=== PATIENT | male | born 1975 | race Hispanic/Latino ===

== ENCOUNTER 2020-06-05 14:04 | Outpatient (CLI) | payer BC, SELFPAY ==
--- NOTE | ~2020-06-05 | US_ITS ---
EXAMINATION: US art doppler w domitila SALAMANCA EXAM DATE: 06/05/2020 14:46 INDICATION: Left leg pain. TECHNIQUE: Segmental pressures and plethysmographic and Doppler waveforms of the brachial and lower e xtremity arteries were obtained. There is no prior study for comparison. FINDINGS: Right and left brachial artery pressures of 100 mm Hg and 108 mm Hg, respectively, are concordant (no rmal difference <= 30 mmHg). The right and left thigh-brachial pressure indices are 1.16, 1.48, resp ectively (normal > 1.2). RIGHT LEG: The ankle-brachial index (JUDIT) is 1.19 (normal >= 0.9-1). The great toe-brachial index (TBI) is 0.94 (normal >= 0.65). The lower extremity ratios, segmental pressure gradients as follows; Proximal superficial femoral artery:- 1.16 (125 mmHg). Distal superficial femoral artery: ----- 1.14 (123 mmHg). Popliteal: 1.22 (132 mmHg). Posterior tibial: 1.19 (126 mmHg). Dorsalis pedis: 1.06 (115 mmHg). (Normal gradients <= 20-30 mmHg between adjacent levels on the same leg or the same levels on the two legs). Arterial waveforms are biphasic. LEFT LEG: The ankle-brachial index (JUDIT) is 1.34 (normal >= 0.9-1). The great toe-brachial index (TBI) is 1.32 (normal >= 0.65). The lower extremity ratios, segmental pressure gradients as follows; Proximal superficial femoral artery:- 1.48 (160 mmHg). Distal superficial femoral artery: ----- 1.41 (152 mmHg). Popliteal: 1.32 (143 mmHg). Posterior tibial: 1.34 (145 mmHg). Dorsalis pedis: 1.18 (127 mmHg). (Normal gradients <= 20-30 mmHg between adjacent levels on the same leg or the same levels on the two legs). Arterial waveforms are biphasic. IMPRESSION: 1. Right ankle-brachial index 1.19, normal. 2. Left ankle-brachial index 1.34, normal. 3. Segmental pressures as above. Reviewed, dictated and finalized at location B.
== END 2020-06-05 14:05 | disposition home or self-care (01) ==
PROVIDERS: Visit Provider Internal Medicine Cardiovascular Disease
DX: I25.10 Atherosclerotic heart disease of native coronary artery without angina pectoris (principal); M79.605 Pain in left leg
CPT/HCPCS: 93923